=== PATIENT | male | born 1990 | race Caucasian/White ===

== ENCOUNTER 2017-04-14 02:05 | Emergency (ER) | payer OTHER ==
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
[2017-04-14] MEDS ORDERED: IBUPROFEN 600 MG TABLET (FP) PO ONE (02:44)
[2017-04-14 02:50] VITALS: BP 126/77; PULSE 88; TEMP 98.7; BMI 29.5
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
[2017-04-14] MEDS ORDERED: CYCLOBENZAPRINE HCL 10 MG TABLET (FP) PO ONE (04:30)
[2017-04-14] MEDS ORDERED: CYCLOBENZAPRINE HCL 10 MG TABLET (FP) ONE (04:39)
== END 2017-04-14 06:12 | disposition home or self-care (01) ==
LOC: JER 02:05
DX: M54.5 Low back pain (principal); V43.52XA Car driver injured in collision with other type car in traffic accident, initial encounter; Y93.89 Activity, other specified; Y92.410 Unspecified street and highway as the place of occurrence of the external cause
CPT/HCPCS: 72128-TC; 72131-TC; 99283-25